=== PATIENT | female | born 1955 | race Caucasian/White ===

== ENCOUNTER 2024-06-03 11:39 | Emergency (ER) | payer SELFPAY ==
[2024-06-03 11:43] VITALS: BP 204/90
[2024-06-03] MEDS: TYLENOL 650 MG PO (13:52)
--- NOTE | 2024-06-03 15:12 | ED.GENMED ---
History of Present Illness
General
Chief Complaint: Fall
Source: patient
Exam Limitations: none
Time Seen by Provider: 06/03/24 13:36
Nursing documentation reviewed up to this point in time: agreed with
History of Present Illness
History of Present Illness:
Patient presents to ED for evaluation after tripping over the sidewalk and falling forward, injuring her face and lip. Denies loss of consciousness. Patient does not take blood thinning medication. Patient states that she had bloody nose, which
now has stopped. Denies blurred vision. Denies dizziness. Denies loss of sensation or weakness. Denies chest pain. Denies shortness of breath. Denies abdominal pain. Denies nausea vomiting. Denies difficulty with ambulation.
Review of Systems
Review of Systems
Allergies reviewed?: Yes
All Other Systems: ROS reviewed and negative except as documented in HPI and ROS
Constitutional: Reports no symptoms; Denies fever
EENT: Reports other (nose bleed)
Musculoskeletal: Reports muscle pain and other
Skin: Reports other (bruising)
Neurological: Reports headache; Denies dizzy, weakness or numbness
Phy Exam
Physical Exam
Physical Exam:
Physical Exam
General: mild distress, not acutely ill. afebrile
Head: right periorbital ecchymosis noted. eomi
Neck: supple. no meningeal signs. no epistaxis noted. teeth intact
Heart: s1/s2 regular rate and rhythm, no murmur.
Lungs: no acute respiratory distress. clear bilaterally. chest wall nontender to palpation
Abdomen: normal bowel sounds. not tender.
Neuro: alert and oriented x 3. no focal neurological deficits
Skin: superficial abrasion noted over bridge of nose without active bleeding, without obvious deformity. an approx 1m superficial laceration noted over upper inner lip without bleeding.
Psychiatric: well kept. interactive and cooperative
Extremities: no edema. no calf tenderness
Course
Orders/Labs/Results
Orders:
Orders
06/03/24 13:42
CT Facial Bones W/o Iv Contras Urgent
Comment:
Reason For Exam: trauma
CT Head W/o Iv Contrast Urgent
Comment:
Reason For Exam: trauma
Acetaminophen [Tylenol] 650 mg PO NOW STA
Vital Signs
Initial and Last Documented VS:
Initial Vital Signs
Temp Pulse Resp BP Pulse Ox
97.4 F 69 18 204/90 99
06/03/24 11:43 06/03/24 11:43 06/03/24 11:43 06/03/24 11:43 06/03/24 11:43
Last Documented Vital Signs
Temp Pulse Resp BP Pulse Ox
97.4 F 69 18 204/90 99
06/03/24 11:43 06/03/24 11:43 06/03/24 11:43 06/03/24 11:43 06/03/24 11:43
Procedures
Laceration Closure
Upper Lip:
Status of Wound: clean
Size of Wound in cm: 1
Description of Wound Edges: sharp
Preparation: cleaned with SurClens
Revision/Debridement: routine- no revision
Type of Closure: single layer closure
Skin Closure Material: 5-0 vicryl
Number of sutures: 1
MDM/Problems Addressed
MDM/Problems Addressed:
Inner lip laceration loosely approximated with placement of 1 Vicryl suture. Advised PCP follow-up for reevaluation, including suture removal, if sutures remain after 10 days. Otherwise patient without any abnormal findings noted on CT scan, aside
from likely minimally displaced nasal fracture, which she will discuss with her ENT physician. Otherwise, patient is afebrile, hemodynamically stable, and is without any neurological deficit, at time of discharge.
*Critical Care Note
Total Time (30-74mins, 75-104mins- exclusive of procedures): Not Applicable
ED Attending Note
-
Portions of this chart may have been created with voice recognition software.� Occasional wrong word or��sound alike� substitutions may have occurred due to the inherent limitations of voice recognition software.
Discharge Plan
Departure
Patient Disposition: Home (Routine Discharge)
Date of Disposition: 06/03/24
Time of Disposition: 15:12
Patient with high blood pressure during this ER visit?: Yes
Condition: Good
Discharge Problem:
Contusion of face, Fracture of nasal bone, Laceration of lip
Instructions: Contusion (DC), Laceration Repair With Stitches (DC), Nose Fracture ED
Referrals:
UNKNOWN - PT DOES,NOT KNOW [Family Provider] -
Vannessa Sutherland MD [Active] -
Activity Restrictions/Additional Instructions:
As discussed, please follow-up with your primary care physician and/or referred ENT physician for further evaluation and treatment.
Interventions
Interventions:
*Risk Screen - Suicide Last Done: 06/03/24 11:43
*General Assessment Last Done: 06/03/24 11:43
*Neglect/Abuse Screening Last Done: 06/03/24 11:43
*ED- Fall Risk Assessment Last Done: 06/03/24 11:43
*ED COVID-19 Vaccine History Last Done: 06/03/24 11:43
*Nursing Disposition Last Done: 06/03/24 16:56
ED-Musculoskeletal Assessment Last Done: 06/03/24 12:35
ED- Neurological Assessment Last Done: 06/03/24 12:35
ED-Skin Assessment Last Done: 06/03/24 12:35
Discharge Date and Time
Discharge Date/Time: 06/03/24 16:57
Print Language: LEBANESE
== END 2024-06-03 16:57 | disposition home or self-care (01) ==
LOC: EMR 11:39
PROVIDERS: EMERGENCY PHYSICIAN Emergency Medicine
DX: S01.511A Laceration without foreign body of lip, initial encounter (principal); S02.2XXA Fracture of nasal bones, initial encounter for closed fracture; W01.0XXA Fall on same level from slipping, tripping and stumbling without subsequent striking against object, initial encounter; Y92.480 Sidewalk as the place of occurrence of the external cause
CPT/HCPCS: 12011; 99284; 70450; 70486